=== PATIENT | female | born 2000 | race African-American/Black ===

== ENCOUNTER 2022-02-14 23:31 | Emergency (ER) | payer OTHER ==
[~2022-02-14] VITALS: Ht 175.3 cm; Wt 77.1 kg
--- NOTE | 2022-02-14 23:50 | NUR ---
BIBSELF C/O MID ABDOMINAL PAIN WHICH STARTED ABOUT 45 MINUTES AGO. PT IS AAO X 4, RESPIRATIONS UNLABORED, SATURATION AT 96% ON ROOM AIR. PT AMBULATORY WITH STEADY GAIT. PATIENT FURTHER C/O NUMBNESS AT THE RIGHT ARM. PT ATTACHED TO MONITOR AND PULSE OX. PT KEPT COMFORTABLE IN ROOM. AWAITING MD EVALUATION.
[2022-02-14] MEDS ORDERED: MAG HYDROX/AL HYDROX/SIMETH 30 ML UDC ONE (23:58)
[2022-02-15] MEDS ORDERED: LIDOCAINE VISCOUS 2% UD 15 ML UDC MM ONE
[2022-02-15] MEDS ORDERED: MAG HYDROX/AL HYDROX/SIMETH 30 ML UDC PO ONE
[2022-02-15] MEDS ORDERED: LIDOCAINE VISCOUS 2% UD 15 ML UDC ONE (00:04)
[2022-02-15 00:05] LABS: BASOPHILS % (AUTO) 0.4 % (0.0-2.0); EOSINOPHILS % (AUTO) 3.6 % (0.0-6.0); HEMATOCRIT 41 % (33-45); LYMPHOCYTES # (AUTO) 3.8 K/uL (0.8-4.8); LYMPHOCYTES % (AUTO) 52.5 % (20.0-44.0); MEAN CORPUSCULAR HGB CONC 34 g/dl (31.0-36.0); MEAN CORPUSCULAR VOLUME 86 fL (82-100); MONOCYTES # (AUTO) 0.5 K/uL (0.1-1.30); MONOCYTES % (AUTO) 6.5 % (2.0-12.0); NEUTROPHILS # (AUTO) 2.7 K/uL (1.8-8.9); PLATELET COUNT (AUTO) 256 K/uL (150-450); RED BLOOD CELL COUNT(AUTO) 4.79 MIL/uL (4.0-5.2); WHITE BLOOD COUNT (AUTO) 7.2 K/uL (4.3-11.0)
[2022-02-15 00:13] LABS: CALCIUM, SERUM 8.8 mg/dL (8.5-10.1); CREATININE 0.9 mg/dL (0.6-1.3); POTASSIUM 3.5 mmol/L (3.5-5.1)
[2022-02-15 00:19] LABS: ALBUMIN 3.6 g/dL (3.4-5.0); BILIRUBIN,DIRECT 0.1 mg/dL (0.0-0.2); BILIRUBIN,TOTAL 0.6 mg/dL (0.2-1.0); TOTAL PROTEIN, SERUM 7.5 g/dL (6.4-8.2)
[2022-02-15] MEDS ORDERED: OMEP40CA21 PO (00:37)
[2022-02-15] MEDS ORDERED: SUCR1TAB PO (00:37)
--- NOTE | 2022-02-15 00:50 | NUR ---
Patient discharged to home in stable condition. Written and verbal after care instructions given. Patient verbalizes understanding of instruction. Patient ambulatory with a steady gait
[2022-02-15 00:51] VITALS: BP 106/66
== END 2022-02-15 00:52 | disposition home or self-care (01) ==
LOC: ER 23:35
DX: K21.9 Gastro-esophageal reflux disease without esophagitis (principal)
CPT/HCPCS: 36415; 80048-TC; 80076-TC; 83690-TC; 85025-TC

== ENCOUNTER 2022-04-15 11:53 | Emergency (ER) | payer OTHER ==
[~2022-04-15] VITALS: Ht 175.3 cm; Wt 59.9 kg
[~2022-04-15 11:53] MED LIST: OMEP40CA21 PO; SUCR1TAB PO
[2022-04-15 12:03] VITALS: BP 106/68
[2022-04-15] MEDS ORDERED: CIPR500T5 PO (12:50)
[2022-04-15 12:52] LABS: BILIRUBIN,URINE NEGATIVE (NEGATIVE); COLOR,URINE YELLOW (YELLOW); LEUKOCYTE ESTERASE ,URINE NEGATIVE (NEGATIVE); NITRITE, URINE NEGATIVE (NEGATIVE); PH,URINE 6.5 (5.0-8.0); PROTEIN,URINE NEGATIVE (NEGATIVE); UGLUCOSE NEGATIVE (NEGATIVE); UROBILINOGEN,URINE 0.2 EU/dL (0.2)
--- NOTE | 2022-04-15 13:05 | NUR ---
Patient discharged to home in stable condition. Written and verbal after care instructions given. Patient verbalizes understanding of instruction.
== END 2022-04-15 13:05 | disposition home or self-care (01) ==
LOC: ER 12:06
DX: N39.0 Urinary tract infection, site not specified (principal); Z87.440 Personal history of urinary (tract) infections; Z60.2 Problems related to living alone; Z79.899 Other long term (current) drug therapy
CPT/HCPCS: 84703-TC; 87086-TC

== ENCOUNTER 2023-01-25 07:38 | Emergency (ER) | payer OTHER ==
[~2023-01-25] VITALS: Ht 172.7 cm; Wt 82.1 kg
[~2023-01-25 07:38] MED LIST changes: +CIPR500T5 PO
--- NOTE | 2023-01-25 07:52 | NUR ---
URINE COLLECTED AND SENT
--- NOTE | 2023-01-25 07:59 | NUR ---
pt put on bed cc dysuria claims started yesterday pain occurs at the end of the urination. took some TYLENOL OFFERS TEMP RELIEF.SHE NOTED REDDISH URINE TUS WENT TO ER
[2023-01-25 08:27] VITALS: BP 117/70
[2023-01-25 09:07] LABS: BILIRUBIN,URINE NEGATIVE (NEGATIVE); COLOR,URINE YELLOW (YELLOW); LEUKOCYTE ESTERASE ,URINE NEGATIVE (NEGATIVE); NITRITE, URINE NEGATIVE (NEGATIVE); PROTEIN,URINE 1+ mg/dl (NEGATIVE); UGLUCOSE NEGATIVE (NEGATIVE)
[2023-01-25 09:22] LABS: BACTERIA,URINE Rare /HPF (None Seen); SQUAMOUS EPITHELIAL CELL,UR Few /HPF (None Seen); WBC,URINE 0-2 /HPF (0-3)
[2023-01-25] MEDS ORDERED: NITR100C6 PO (09:27)
--- NOTE | 2023-01-25 09:48 | NUR ---
ULTRASOUND AT BEDSIDE
--- NOTE | 2023-01-25 09:57 | NUR ---
TRANSFERRED TO BED 15
[2023-01-25] MEDS ORDERED: IBUP-1955 PO (10:17)
--- NOTE | 2023-01-25 10:28 | NUR ---
Patient discharged to home in stable condition. Written and verbal after care instructions given. Patient verbalizes understanding of instruction.
== END 2023-01-25 10:28 | disposition home or self-care (01) ==
LOC: ER 07:44
DX: N30.90 Cystitis, unspecified without hematuria (principal); Z79.899 Other long term (current) drug therapy; Z60.2 Problems related to living alone
CPT/HCPCS: 76856-TC; 81001; 84703-TC

== ENCOUNTER 2023-03-10 12:40 | Emergency (ER) | payer OTHER ==
[~2023-03-10] VITALS: Ht 175.3 cm; Wt 85.7 kg
[~2023-03-10 12:40] MED LIST changes: +IBUP-1955 PO; +NITR100C6 PO
[2023-03-10 14:32] LABS: BILIRUBIN,URINE 1+ (NEGATIVE); COLOR,URINE YELLOW (YELLOW); LEUKOCYTE ESTERASE ,URINE TRACE (NEGATIVE); NITRITE, URINE NEGATIVE (NEGATIVE); PH,URINE 7.5 (5.0-8.0); PROTEIN,URINE NEGATIVE (NEGATIVE); UGLUCOSE NEGATIVE (NEGATIVE)
[2023-03-10] MEDS ORDERED: IBUP-1955 PO (15:03)
[2023-03-10] MEDS ORDERED: CEPH500C2 PO (15:03)
[2023-03-10] MEDS ORDERED: PHEN-704 PO (15:03)
[2023-03-10] MEDS ORDERED: FLUCONAZOLE (100 MG) 100 MG TABLET ONE (15:34)
[2023-03-10] MEDS: IBUPROFEN 600 MG TABLET PO ONE (15:37)
[2023-03-10] MEDS: PHENAZOPYRIDINE HCL 200 MG TABLET PO ONE (15:37)
[2023-03-10] MEDS: FLUCONAZOLE (100 MG) 100 MG TABLET PO ONE (15:37)
--- NOTE | 2023-03-10 15:38 | NUR ---
PT EDUCATED ON DISCHARGED INSTRUCTIONS. DIRECTED TO TAKE ABX AND PAIN MEDS PERSCRIBED.
[2023-03-10 15:39] VITALS: BP 115/76; TEMP 98
[2023-03-10 16:44] LABS: BACTERIA,URINE RARE /HPF (None Seen); MUCUS,URINE Few /LPF (None Seen); RBC,URINE 51-80 /HPF (0-2); SQUAMOUS EPITHELIAL CELL,UR 0-2 /HPF (None Seen)
== END 2023-03-10 15:40 | disposition home or self-care (01) ==
LOC: ER 12:52
DX: N30.90 Cystitis, unspecified without hematuria (principal); Z60.2 Problems related to living alone; Z79.899 Other long term (current) drug therapy; Z88.1 Allergy status to other antibiotic agents
CPT/HCPCS: 81001; 84703-TC

== ENCOUNTER 2023-11-03 23:58 | Emergency (ER) | payer SELFPAY ==
[~2023-11-03] VITALS: Ht 172.7 cm; Wt 88.5 kg
[~2023-11-03 23:58] MED LIST changes: +CEPH500C2 PO; +PHEN-704 PO
[2023-11-04 01:45] LABS: BASOPHILS % (AUTO) 0.6 % (0.0-2.0); EOSINOPHILS # (AUTO) 0.2 K/uL (0.0-0.7); EOSINOPHILS % (AUTO) 2.1 % (0.0-6.0); HEMATOCRIT 42 % (33-45); HEMOGLOBIN 14.4 g/dL (11.5-14.8); LYMPHOCYTES # (AUTO) 3.9 K/uL (0.8-4.8); LYMPHOCYTES % (AUTO) 54.7 % (20.0-44.0); MEAN CORPUSCULAR HEMOGLOBIN 29 PG (26.0-33.0); MEAN CORPUSCULAR HGB CONC 34 g/dl (31.0-36.0); MEAN CORPUSCULAR VOLUME 86 fL (82-100); MONOCYTES # (AUTO) 0.4 K/uL (0.1-1.30); MONOCYTES % (AUTO) 5.5 % (2.0-12.0); NEUTROPHILS # (AUTO) 2.7 K/uL (1.8-8.9); NEUTROPHILS % (AUTO) 37.1 % (43.0-81.0); PLATELET COUNT (AUTO) 220 K/uL (150-450); RED BLOOD CELL COUNT(AUTO) 4.88 MIL/uL (4.0-5.2); RED CELL DISTRIBUTION WIDTH 12.9 % (11.5-15.0); WHITE BLOOD COUNT (AUTO) 7.2 K/uL (4.3-11.0)
[2023-11-04 01:57] LABS: APPEARANCE,URINE CLEAR (CLEAR); BILIRUBIN,URINE NEGATIVE (NEGATIVE); BLOOD, URINE NEGATIVE Ery/uL (NEGATIVE); COLOR,URINE YELLOW (YELLOW); KETONES,URINE NEGATIVE (NEGATIVE); LEUKOCYTE ESTERASE ,URINE NEGATIVE (NEGATIVE); NITRITE, URINE NEGATIVE (NEGATIVE); PH,URINE 6.5 (5.0-8.0); PROTEIN,URINE NEGATIVE (NEGATIVE); UGLUCOSE NEGATIVE (NEGATIVE); UROBILINOGEN,URINE 0.2 EU/dL (0.2)
[2023-11-04 02:00] LABS: PREGNANCY TEST URINE QUAL NEGATIVE (NEGATIVE)
[2023-11-04 02:08] LABS: ALBUMIN 3.7 g/dL (3.4-5.0); BILIRUBIN,DIRECT 0.1 mg/dL (0.0-0.2); BILIRUBIN,TOTAL 0.6 mg/dL (0.2-1.0); CALCIUM, SERUM 9.3 mg/dL (8.5-10.1); CREATININE 0.7 mg/dL (0.6-1.3); POTASSIUM 4.2 mmol/L (3.5-5.1); TOTAL PROTEIN, SERUM 7.7 g/dL (6.4-8.2)
[2023-11-04] MEDS ORDERED: FLUC150T PO (05:58)
[2023-11-04] MEDS ORDERED: FLUT9.9S NS (05:58)
[2023-11-04 06:08] VITALS: BP 121/65; TEMP 97.6; O2SAT 99
== END 2023-11-04 06:09 | disposition home or self-care (01) ==
LOC: ER 11-04 00:04
DX: R10.32 Left lower quadrant pain (principal); R10.2 Pelvic and perineal pain; Z88.8 Allergy status to other drugs, medicaments and biological substances; Z60.2 Problems related to living alone
CPT/HCPCS: 36415; 76856-TC; 80048-TC; 80076-TC; 83690-TC; 84702-TC; 84703-TC; 85025-TC; 87086-TC

== ENCOUNTER 2024-04-07 09:51 | Emergency (ER) | payer MEDICAID ==
[~2024-04-07] VITALS: Ht 175.3 cm; Wt 84.4 kg
[~2024-04-07 09:51] MED LIST changes: +FLUC150T PO; +FLUT9.9S NS
[2024-04-07 10:12] VITALS: BP 112/94; TEMP 97.8; O2SAT 100
[2024-04-07 11:44] LABS: EOSINOPHILS # (AUTO) 0.1 K/uL (0.0-0.7); EOSINOPHILS % (AUTO) 1.5 % (0.0-6.0); HEMATOCRIT 43 % (33-45); HEMOGLOBIN 14.6 g/dL (11.5-14.8); LYMPHOCYTES # (AUTO) 2.4 K/uL (0.8-4.8); LYMPHOCYTES % (AUTO) 55.3 % (20.0-44.0); MEAN CORPUSCULAR HEMOGLOBIN 29 PG (26.0-33.0); MEAN CORPUSCULAR HGB CONC 34 g/dl (31.0-36.0); MEAN CORPUSCULAR VOLUME 86 fL (82-100); MONOCYTES # (AUTO) 0.3 K/uL (0.1-1.30); MONOCYTES % (AUTO) 6.8 % (2.0-12.0); NEUTROPHILS # (AUTO) 1.5 K/uL (1.8-8.9); NEUTROPHILS % (AUTO) 35.4 % (43.0-81.0); PLATELET COUNT (AUTO) 255 K/uL (150-450); RED BLOOD CELL COUNT(AUTO) 5.06 MIL/uL (4.0-5.2); RED CELL DISTRIBUTION WIDTH 12.6 % (11.5-15.0); WHITE BLOOD COUNT (AUTO) 4.3 K/uL (4.3-11.0)
[2024-04-07 11:51] LABS: APPEARANCE,URINE Clear (CLEAR); BILIRUBIN,URINE SMALL (NEGATIVE); BLOOD, URINE Negative Ery/uL (NEGATIVE); COLOR,URINE YELLOW (YELLOW); KETONES,URINE Negative (NEGATIVE); LEUKOCYTE ESTERASE ,URINE Negative (NEGATIVE); NITRITE, URINE Negative (NEGATIVE); PH,URINE 7.5 (5.0-8.0); PROTEIN,URINE 30 mg/dl (NEGATIVE); UGLUCOSE Negative (NEGATIVE); UROBILINOGEN,URINE 0.2 EU/dL (0.2)
[2024-04-07 11:57] LABS: CALCIUM, SERUM 9.4 mg/dL (8.5-10.1); CREATININE 0.7 mg/dL (0.6-1.3); POTASSIUM 4.1 mmol/L (3.5-5.1)
[2024-04-07 12:20] LABS: PREGNANCY TEST URINE QUAL NEGATIVE (NEGATIVE)
[2024-04-07 12:27] LABS: ADD URINE CULTURE NO; BACTERIA,URINE Few /HPF (None Seen); RBC,URINE 0-2 /HPF (0-2); WBC,URINE 0-2 /HPF (0-3)
[2024-04-07] MEDS ORDERED: METH4TAB17 PO (14:19)
[2024-04-07] MEDS ORDERED: NAPR-1009 PO (14:19)
== END 2024-04-07 14:28 | disposition home or self-care (01) ==
LOC: ER 10:02
DX: M25.551 Pain in right hip (principal); Z88.8 Allergy status to other drugs, medicaments and biological substances; Z60.2 Problems related to living alone
CPT/HCPCS: 36415; 72192-TC; 80048-TC; 81001; 84703-TC; 85025-TC

== ENCOUNTER 2024-08-28 15:58 | Emergency (ER) | payer MEDICAID, OTHER ==
[~2024-08-28] VITALS: Ht 175.3 cm; Wt 83.9 kg
[~2024-08-28 15:58] MED LIST changes: +METH4TAB17 PO; +NAPR-1009 PO
[2024-08-28 16:18] VITALS: BP 120/64; TEMP 98; O2SAT 98
== END 2024-08-28 21:20 | disposition left against medical advice (07) ==
LOC: ER 16:02
DX: Z00.00 Encounter for general adult medical examination without abnormal findings (principal); Z53.21 Procedure and treatment not carried out due to patient leaving prior to being seen by health care provider